=== PATIENT | female | born 1990 | race American Indian/Alaskan Native ===

== ENCOUNTER 2017-10-24 11:01 | Emergency (ER) | payer OTHER ==
[2017-10-24 11:22] VITALS: RESP 20
--- NOTE | 2017-10-24 11:47 | C.PDOC ---
History Of Present Illness 27 year old female presents to the ED for evaluation of lower abdominal cramping associated with nausea which began 2 weeks ago. Patient states her symptoms "feel like her menstrual period." she reports her LMP was on 10/07. Otherwise, she denies fever, chills, vomiting, diarrhea, back pain, dysuria, hematuria, urinary frequency, recent illnesses. Time Seen by Provider: 10/24/17 11:13 Chief Complaint (Nursing): Abdominal Pain History Per: Patient History/Exam Limitations: no limitations Onset/Duration Of Symptoms: Other (2 weeks ) Current Symptoms Are (Timing): Still Present Location Of Pain/Discomfort: Other (lower abdomen ) Radiation Of Pain To:: None Quality Of Discomfort: Cramping, "Pain" Associated Symptoms: Nausea. denies: Fever, Chills, Vomiting, Diarrhea, Back Pain, Urinary Symptoms Additional History Per: Patient Abnormal Vaginal Bleeding: No Last Menstral Period: 10/07/2017 Past Medical History Reviewed: Historical Data, Nursing Documentation, Vital Signs Vital Signs: Last Vital Signs Temp 98.6 F 10/24/17 13:11 Pulse 85 10/24/17 13:11 Resp 20 10/24/17 13:11 BP 120/81 10/24/17 13:11 Pulse Ox 97 10/24/17 13:11 - Medical History PMH: No Chronic Diseases Surgical History: No Surg Hx Family History: States: Unknown Family Hx - Social History Hx Alcohol Use: Yes Hx Substance Use: Yes - Immunization History Hx Tetanus Toxoid Vaccination: No Hx Influenza Vaccination: No Hx Pneumococcal Vaccination: No Review Of Systems Constitutional: Negative for: Fever, Chills Gastrointestinal: Positive for: Nausea, Abdominal Pain (lower abdomen ). Negative for: Vomiting, Diarrhea Genitourinary: Negative for: Dysuria, Frequency, Hematuria Musculoskeletal: Negative for: Back Pain Physical Exam - Physical Exam Appears: Non-toxic, No Acute Distress Skin: Normal Color, Warm, Dry Head: Atraumatic, Normacephalic Eye(s): bilateral: Normal Inspection Oral Mucosa: Moist Neck: Supple Chest: Symmetrical, No Deformity, No Tenderness Cardiovascular: Rhythm Regular, No Murmur Respiratory: Normal Breath Sounds, No Rales, No Rhonchi, No Wheezing Gastrointestinal/Abdominal: Soft, Tenderness (mild, suprapubic ), No Guarding, No Rebound Extremity: Normal ROM, Capillary Refill (less than 2 seconds ) Neurological/Psych: Oriented x3, Normal Speech, Normal Cognition Gait: Steady ED Course And Treatment O2 Sat by Pulse Oximetry: 100 (on RA) Pulse Ox Interpretation: Normal Progress Note: Urinalysis ordered and reviewed. On re-evaluation, pt is afebrile, hemodynamicaly stable. Non-toxic. Tolerate Po well in ED. PulsEOx 100% RA. ENT: no acute findings. neck: Supple, (-) meningeal signs. Lungs: CTA B/L, BS equal B/L. Abd: benign, (-) guarding, (-) rebound. Back: (-) CVa tenderness. UA- normal, Upreg (-)Pt has clinical findings c/w diffuse lower abdominal cramping pain, nos. Pt advised on course of ds. Ref. to f/u with PMD , [facility]OZE MACHINE OPERATOR in 2 -3 days for re-eavl. return if any new changes. Disposition Counseled Patient/Family Regarding: Studies Performed, Diagnosis, Need For Followup - Disposition Referrals: [facility] [Outside] [facility] [Outside] Disposition: HOME/ ROUTINE Disposition Time: 12:40 Condition: STABLE Additional Instructions: Follow up with PMD, [facility] MACHINE OPERATOR IN 2-3 days for re-evaluation. return to ED if any worsening or new changes. Instructions: Abdominal Pain (ED) Forms: [employer] (Serbian) - Clinical Impression Clinical Impression: Abdominal cramping - PA / COMMERCIAL CREDIT REVIEWER / Resident Statement MD/DO has reviewed & agrees with the documentation as recorded. - Scribe Statement The provider has reviewed the documentation as recorded by the Scribe (Starr Maynard) All medical record entries made by the Scribe were at my direction and personally dictated by me. I have reviewed the chart and agree that the record accurately reflects my personal performance of the history, physical exam, medical decision making, and the department course for this patient. I have also personally directed, reviewed, and agree with the discharge instructions and disposition.
[2017-10-24 11:54] LABS: SQUAMOUS EPITHIAL 7 /hpf (0-5); URINE BILIRUBIN NEGATIVE (NEGATIVE); URINE BLOOD NEGATIVE (NEGATIVE); URINE CLARITY Hazy (Clear); URINE COLOR Yellow (YELLOW); URINE GLUCOSE (UA) NORMAL (Normal); URINE LEUKOCYTE ESTERASE NEG Leu/uL (Negative); URINE NITRATE NEGATIVE (NEGATIVE); URINE PROTEIN NEGATIVE (NEGATIVE); URINE UROBILINOGEN NORMAL mg/dL (0.2-1.0)
[2017-10-24 13:13] VITALS: BP 120/81; PULSE 85; TEMP 98.6
[2017-10-25 12:24] VITALS: O2SAT 100
== END 2017-10-24 13:11 | disposition home or self-care (01) ==
LOC: C.ER 11:01
DX: R10.30 Lower abdominal pain, unspecified (principal)

== ENCOUNTER 2017-11-13 11:20 | Emergency (ER) | payer OTHER, SELFPAY ==
[2017-11-13 11:34] VITALS: BP 126/81; PULSE 103; RESP 16; TEMP 98.5; O2SAT 100
--- NOTE | 2017-11-13 12:16 | C.PDOC ---
History Of Present Illness 27 y/o female presents to the ER complaining of cramping abdominal pain and nausea. Patient reports that her LMP was on 11/03/17. Patient states that she was seen in [place] ER on 10/24/17 for abdominal cramping with nausea. Patient denies fever, chills, runny nose, cough, chest pain, and SOB. Time Seen by Provider: 11/13/17 11:47 Chief Complaint (Nursing): Medical Clearance History Per: Patient History/Exam Limitations: no limitations Onset/Duration Of Symptoms: Days Current Symptoms Are (Timing): Still Present Severity: Moderate Past Medical History Reviewed: Historical Data, Nursing Documentation, Vital Signs Vital Signs: Last Vital Signs Temp 98.5 F 11/13/17 11:31 Pulse 103 H 11/13/17 11:31 Resp 16 11/13/17 11:31 BP 126/81 11/13/17 11:31 Pulse Ox 100 11/13/17 12:26 - Medical History PMH: No Chronic Diseases Surgical History: No Surg Hx Family History: States: No Known Family Hx - Social History Hx Alcohol Use: No Hx Substance Use: No - Immunization History Hx Tetanus Toxoid Vaccination: No Hx Influenza Vaccination: No Hx Pneumococcal Vaccination: No Review Of Systems Except As Marked, All Systems Reviewed And Found Negative. Constitutional: Negative for: Fever, Chills Cardiovascular: Negative for: Chest Pain Respiratory: Negative for: Cough, Shortness of Breath Gastrointestinal: Positive for: Nausea, Abdominal Pain. Negative for: Vomiting , Diarrhea Physical Exam - Physical Exam Appears: Non-toxic, No Acute Distress Skin: Normal Color, Warm Head: Atraumatic, Normacephalic Eye(s): bilateral: Normal Inspection Nose: Normal Oral Mucosa: Moist Neck: Supple Chest: Symmetrical Cardiovascular: Rhythm Regular Respiratory: Normal Breath Sounds, No Accessory Muscle Use, No Rales, No Rhonchi , No Wheezing Gastrointestinal/Abdominal: Normal Exam, Soft, No Tenderness Back: Normal Inspection, No CVA Tenderness Neurological/Psych: Oriented x3, Normal Speech, Normal Motor, Normal Sensation ED Course And Treatment O2 Sat by Pulse Oximetry: 100 (RA) Pulse Ox Interpretation: Normal Medical Decision Making Medical Decision Making: Plan: --UA --HCG, Qualitative Urine Disposition Counseled Patient/Family Regarding: Studies Performed, Need For Followup, Rx Given - Disposition Referrals: [facility] [Outside] Disposition: HOME/ ROUTINE Disposition Time: 13:25 Condition: STABLE Prescriptions: Ibuprofen [Motrin] 600 mg PO TID #15 tab Ondansetron [Zofran Odt] 4 mg PO TID PRN #12 odt PRN Reason: Nausea/Vomiting Instructions: Acute Abdomen (Belly Pain), Adult (DC) Forms: [facility] (Mongolian), Work Excuse - POA Present On Arrival: None - Clinical Impression Clinical Impression: Abdominal cramping - Scribe Statement The provider has reviewed the documentation as recorded by the Sapna Persaud Provider Attestation: All medical record entries made by the Sapna were at my direction and personally dictated by me. I have reviewed the chart and agree that the record accurately reflects my personal performance of the history, physical exam, medical decision making, and the department course for this patient. I have also personally directed, reviewed, and agree with the discharge instructions and disposition.
[2017-11-13 12:19] LABS: SQUAMOUS EPITHIAL 8 /hpf (0-5); URINE BACTERIA OCC (<OCC); URINE BILIRUBIN NEGATIVE (NEGATIVE); URINE BLOOD NEGATIVE (NEGATIVE); URINE CLARITY Clear (Clear); URINE COLOR Yellow (YELLOW); URINE GLUCOSE (UA) NORMAL (Normal); URINE LEUKOCYTE ESTERASE NEG Leu/uL (Negative); URINE NITRATE NEGATIVE (NEGATIVE); URINE PROTEIN NEGATIVE (NEGATIVE); URINE UROBILINOGEN NORMAL mg/dL (0.2-1.0)
[2017-11-13 12:21] LABS: HCG,QUALITATIVE URINE NEGATIVE (NEGATIVE)
== END 2017-11-13 13:38 | disposition home or self-care (01) ==
LOC: C.ER 11:20
DX: R10.9 Unspecified abdominal pain (principal)